=== PATIENT | male | born 1970 | race Caucasian/White ===

== ENCOUNTER 2022-07-26 04:29 | Day surgery (SDC) | payer BC ==
[2022-07-17 15:30] VITALS: BMI 27.1
[~2022-07-26 04:29] MED LIST: GENTAMICIN SO4 80 MG/2 ML VIAL IVPB ONE; VANCOMYCIN 1 GM in NS (PRE-DOCKED) 1,000 MG/250 ML IVPB ONE
[2022-07-26] MEDS ORDERED: VANCOMYCIN 1,000 MG VIAL (RESTRICTED TO ID ONLY) ONE ×4 (10:33→13:30)
[2022-07-26] MEDS ORDERED: GENTAMICIN SO4 80 MG/2 ML VIAL ONE ×4 (10:33→13:30)
[2022-07-26] MEDS ORDERED: LIDOCAINE HCL 1%, 10 MG/ML (20ML VIAL) ONE (10:33)
[2022-07-26] MEDS ORDERED: VANCOMYCIN 500 MG VIAL (RESTRICTED TO ID ONLY) IVPB ONE (12:25)
[2022-07-26] MEDS ORDERED: GENTAMICIN SO4 80 MG/2 ML VIAL IVPB ONE ×4 (12:27→14:04)
[2022-07-26] MEDS ORDERED: FENTANYL CITRATE/PF 50 MCG/ML VIAL ONE ×3 (12:36→15:01)
[2022-07-26] MEDS ORDERED: PROPOFOL 40 ML ONE (12:36)
[2022-07-26] MEDS ORDERED: MIDAZOLAM HCL 2 MG/2 ML SINGLE DOSE VIAL ONE (12:36)
[2022-07-26] MEDS ORDERED: LIDOCAINE HCL/PF 2% SDV 5ML VIAL ONE (12:36)
[2022-07-26] MEDS ORDERED: LIDOCAINE HCL 2% (20ML MULTI-DOSE VIAL) ONE (13:07)
[2022-07-26] MEDS ORDERED: ONDANSETRON 4 MG/2 ML VIAL ONE (13:12)
[2022-07-26] MEDS ORDERED: DEXAMETHASONE SOD PHOSPHATE 4 MG/1 ML VIAL ONE (13:12)
[2022-07-26] MEDS ORDERED: VANCOMYCIN 1 GM in NS (PRE-DOCKED) 1,000 MG/250 ML IVPB ONE ×2 (13:35→14:04)
[2022-07-26] MEDS ORDERED: KETOROLAC TROMETHAMINE 30 MG/1 ML VIAL ONE (14:31)
[2022-07-26] MEDS ORDERED: BENZOIN/ALOE VERA/STORAX/TOLU 58 ML BOTTLE TP ONE (14:56)
[2022-07-26] MEDS ORDERED: LACTATED RINGERS SOLUTION 1,000 ML IV SCH (15:30)
[2022-07-26] MEDS ORDERED: ACETAMINOPHEN 1000 MG/100 ML BAG IVPB ONE (15:30)
[2022-07-26] MEDS ORDERED: oxyCODONE HCL 5 MG TABLET PO PRN (15:30)
[2022-07-26] MEDS ORDERED: ONDANSETRON 4 MG/2 ML VIAL IVPUSH PRN (15:30)
[2022-07-26] MEDS ORDERED: ACETAMINOPHEN 500 MG TABLET (FP) ONE (17:45)
[2022-07-26] MEDS ORDERED: oxyCODONE HCL 5 MG TABLET ONE (17:46)
[2022-07-26 19:08] VITALS: RESP 20; TEMP 98.8
[2022-07-26 19:11] VITALS: BP 130/78; PULSE 72
== END 2022-07-26 18:10 | disposition home or self-care (01) ==
LOC: JASU-SURG 04:29
PROVIDERS: ATTEND Urology
PROC: 0VUS0JZ Supplement Penis with Synthetic Substitute, Open Approach (ICD-10-PCS; principal; 2022-07-26 13:30)
DX: N52.8 Other male erectile dysfunction (principal)
CPT/HCPCS: 54401; C1813; 94760